=== PATIENT | female | born 1990 | race African-American/Black ===

== ENCOUNTER 2018-11-10 07:46 | Inpatient (IN) | payer OTHER ==
[2018-11-10] MEDS ORDERED: METHYLERGONOVINE 0.2 MG INJ IM (09:00)
[2018-11-10] MEDS ORDERED: CARBOPROST 250 MCG INJ IM (09:00)
[2018-11-10] MEDS ORDERED: IBUPROFEN 600 MG TAB PO (09:00)
[2018-11-10] MEDS ORDERED: MISOPROSTOL 200 MCG TAB PR (09:00)
[2018-11-10] MEDS ORDERED: OXYTOCIN 30 UNITS/LR 500 ML IV (09:00)
[2018-11-10 09:23] LABS: ADD MAN DIFF? NO
[2018-11-10 09:28] LABS: BASOPHILS % 0.4 % (0.0-2.0); EOSINOPHILS # 0.1 10^3/ul (0.0-0.5); EOSINOPHILS % 0.7 % (0.0-7.0); HEMATOCRIT 32.3 % (37.0-47.0); HEMOGLOBIN 10.8 g/dl (12.0-16.0); LYMPHOCYTES # 2.3 10^3/ul (0.8-2.9); LYMPHOCYTES % 21.1 % (15.0-51.0); MEAN CORPUSCULAR HGB CONC 33.4 g/dl (32.0-37.0); MEAN CORPUSCULAR VOLUME 89.7 fl (82.0-101.0); MEAN PLATELET VOLUME 11.5 fl (7.4-10.4); NEUTROPHIL # 7.2 10^3/ul (1.6-7.5); NEUTROPHILS % 66.6 % (39.0-77.0); PLATELET COUNT 215 10^3/UL (140-415); RED CELL DISTRIBUTION WIDTH 13.2 % (11.5-14.5)
[2018-11-10 09:28] LABS: WHITE BLOOD COUNT 10.7 10^3/ul (4.8-10.8)
[2018-11-10 09:49] LABS: INR 0.95; PROTIME 12.8 Sec (11.9-14.9)
[2018-11-10 09:50] LABS: PARTIAL THROMBOPLASTIN TIME 27.5 Sec (23.0-35.0)
[2018-11-10] MEDS: LACTATED RINGER'S 1,000 ML IV ×3 (10:01→22:41)
[2018-11-10 10:27] LABS: HEPATITIS B SURFACE ANTIGEN NEGATIVE (NEGATIVE)
[2018-11-10] MEDS: MISOPROSTOL 50 MCG CAPSULE PO ×3 (10:38→18:29)
[2018-11-10] MEDS: BUTORPHANOL 2 MG INJ IV ×2 (18:32→23:20)
[2018-11-10 20:40] LABS: RAPID PLASMA REAGIN NONREACTIVE (NR)
[2018-11-11] MEDS: LACTATED RINGER'S 1,000 ML IV ×2 (04:29→06:27)
[2018-11-11] MEDS ORDERED: FENTAnyl 2MCG/ML-ROPIV 0.2% 100 ML (05:22)
[2018-11-11] MEDS: OXYTOCIN 30 UNITS/LR 500 ML IV ×2 (11:06→11:49)
[2018-11-11] MEDS: LIDOCAINE 1% (MPF) 30 ML INJ INJ (11:14)
[2018-11-11] MEDS: ACETAMINOPHEN 500 MG TAB PO (11:49)
[2018-11-11] MEDS: KETOROLAC 30 MG INJ IV (14:14)
[2018-11-11] MEDS ORDERED: ZOLPIDEM 5 MG TAB PO (16:00)
[2018-11-11] MEDS ORDERED: METHYLERGONOVINE 0.2 MG INJ IM (16:00)
[2018-11-11] MEDS ORDERED: MISOPROSTOL 200 MCG TAB PR (16:00)
[2018-11-11] MEDS ORDERED: OXYTOCIN 30 UNITS/LR 500 ML IV (16:00)
[2018-11-11] MEDS ORDERED: CARBOPROST 250 MCG INJ IM (16:00)
[2018-11-11] MEDS ORDERED: DIBUCAINE 1% 30 GM OINT TOP (16:00)
[2018-11-11] MEDS: LANOLIN HPA 1 PKT TOP (17:07)
[2018-11-11] MEDS: WITCH HAZEL/GLYCERIN PAD PR (17:07)
[2018-11-11] MEDS: LACTATED RINGER'S 1,000 ML IV* (17:07)
[2018-11-11] MEDS: BENZOCAINE 20% 56 ML SPRAY TOP (17:08)
[2018-11-11] MEDS: IBUPROFEN 600 MG TAB PO ×2 (18:49→23:42)
[2018-11-11] MEDS: CEPHALEXIN 500 MG CAP PO ×2 (18:49→23:42)
[2018-11-11] MEDS: SENNA/DOCUSATE NA (8.6MG/50MG) TAB PO (21:00)
[2018-11-11] MEDS: MAGNESIUM HYDROXIDE 30ML CUP PO (21:00)
[2018-11-12] MEDS: MINERAL OIL LIGHT 10 ML VIAL TOP (01:31)
[2018-11-12] MEDS: CEPHALEXIN 500 MG CAP PO ×4 (05:50→23:53)
[2018-11-12] MEDS: IBUPROFEN 600 MG TAB PO ×4 (05:50→23:53)
[2018-11-12 06:58] LABS: ADD MAN DIFF? NO
[2018-11-12 07:01] LABS: ABNORMAL IP MESSAGE 1; BASOPHIL # 0.1 10^3/ul (0.0-0.1); BASOPHILS % 0.4 % (0.0-2.0); EOSINOPHILS # 0.1 10^3/ul (0.0-0.5); EOSINOPHILS % 0.6 % (0.0-7.0); HEMATOCRIT 28.3 % (37.0-47.0); HEMOGLOBIN 9.5 g/dl (12.0-16.0); LYMPHOCYTES # 2.9 10^3/ul (0.8-2.9); LYMPHOCYTES % 20.2 % (15.0-51.0); MEAN CORPUSCULAR HEMOGLOBIN 29.8 pg (29.0-33.0); MEAN CORPUSCULAR HGB CONC 33.6 g/dl (32.0-37.0); MEAN CORPUSCULAR VOLUME 88.7 fl (82.0-101.0); MEAN PLATELET VOLUME 11.3 fl (7.4-10.4); MONOCYTE # 1.6 10^3/ul (0.3-0.9); NEUTROPHIL # 9.4 10^3/ul (1.6-7.5); NEUTROPHILS % 66.9 % (39.0-77.0); PLATELET COUNT 207 10^3/UL (140-415); RED BLOOD COUNT 3.19 10^6/ul (4.20-5.40); RED CELL DISTRIBUTION WIDTH 12.9 % (11.5-14.5)
[2018-11-12 07:01] LABS: WHITE BLOOD COUNT 14.1 10^3/ul (4.8-10.8)
[2018-11-12 07:06] LABS: POSITIVE DIFF @See below
[2018-11-12] MEDS: MAGNESIUM HYDROXIDE 30ML CUP PO ×2 (08:35→21:23)
[2018-11-12] MEDS: SENNA/DOCUSATE NA (8.6MG/50MG) TAB PO ×2 (08:35→21:22)
[2018-11-12] MEDS: HYDROCODONE/APAP (5/325) TAB PO ×2 (08:35→18:06)
[2018-11-13] MEDS: HYDROCODONE/APAP (5/325) TAB PO ×2 (00:40→10:48)
[2018-11-13] MEDS: CEPHALEXIN 500 MG CAP PO ×2 (05:46→12:00)
[2018-11-13] MEDS: IBUPROFEN 600 MG TAB PO ×2 (05:46→12:00)
[2018-11-13] MEDS: SENNA/DOCUSATE NA (8.6MG/50MG) TAB PO (09:00)
[2018-11-13] MEDS: MAGNESIUM HYDROXIDE 30ML CUP PO (09:00)
[2018-11-13] MEDS: VARICELLA VACCINE LIVE/PF 1,350 UNIT/0.5 ML ML SC* (09:00)
[2018-11-13] MEDS: MEASLES,MUMPS,RUBELLA VACCINE INJ SC* (09:00)
[2018-11-13] MEDS: DIPHTH/TET/ACEL PERTUSS (ADULT) 0.5 ML VIAL IM* (09:00)
== END 2018-11-13 13:10 | disposition home or self-care (01) | DRG 807 ==
LOC: L-D 07:46 → PP1 11-11 15:12
PROVIDERS: Obstetrics & Gynecology
PROC: 10E0XZZ Delivery of Products of Conception, External Approach (ICD-10-PCS; principal; 2018-11-11)
PROC: 0HQ9XZZ Repair Perineum Skin, External Approach (ICD-10-PCS; 2018-11-11)
PROC: 3E033VJ Introduction of Other Hormone into Peripheral Vein, Percutaneous Approach (ICD-10-PCS; 2018-11-11)
DX: O70.0 First degree perineal laceration during delivery (principal); Z37.0 Single live birth; O69.81X0 Labor and delivery complicated by cord around neck, without compression, not applicable or unspecified; Z3A.39 39 weeks gestation of pregnancy
CPT/HCPCS: 62322; 76815; 85025; 85610; 85730; 86592; 86850; 86900; 86901; 87340; 90716